=== PATIENT | female | born 1965 | race Caucasian/White ===

== ENCOUNTER 2022-03-30 10:28 | Emergency (ER) | payer OTHER ==
[~2022-03-30] VITALS: Ht 157.5 cm; Wt 108.8 kg
[2022-03-30] MEDS ORDERED: CIPRODEX1 ML OT ×2 (12:20→12:24)
[2022-03-30 12:31] VITALS: BP 140/90
== END 2022-03-30 12:32 | disposition home or self-care (01) | DRG 156 ==
LOC: ED 10:28
PROC: 09C1XZZ Extirpation of Matter from Left External Ear, External Approach (ICD-10-PCS; principal; 2022-03-30)
DX: T16.2XXA Foreign body in left ear, initial encounter (principal); H92.02 Otalgia, left ear; E11.9 Type 2 diabetes mellitus without complications; I10 Essential (primary) hypertension; X58.XXXA Exposure to other specified factors, initial encounter